=== PATIENT | female | born 1995 | race Hispanic/Latino ===

== ENCOUNTER 2017-06-03 10:52 | Emergency (ER) | payer SELFPAY ==
[~2017-06-03] VITALS: Ht 152.4 cm; Wt 52.2 kg
[2017-06-03 11:23] LABS: BILIRUBIN,URINE NEGATIVE (NEGATIVE); CLARITY,URINE CLEAR (CLEAR); COLOR,URINE YELLOW (YELLOW); KETONES,URINE NEGATIVE (NEGATIVE); LEUKOCYTE ESTERASE ,URINE NEGATIVE (NEGATIVE); NITRITE,URINE NEGATIVE (NEGATIVE); PROTEIN,URINE DIPSTICK NEGATIVE (NEGATIVE); URINE UROBILINOGEN 0.2 mg/dL (0.2 - 1)
[2017-06-03 11:26] LABS: PREGNANCY TEST, URINE NEGATIVE (NEGATIVE)
[2017-06-03 11:38] LABS: BACTERIA,URINE FEW /HPF; EPITHELIAL CELLS,URINE FEW /LPF
[2017-06-03] MEDS ORDERED: MORPHINE SULFATE 2 MG/ML SYR IV STA (12:27)
[2017-06-03] MEDS ORDERED: ONDANSETRON HCL INJ 2 MG/ML VIAL IV STA (12:27)
--- NOTE | 2017-06-03 12:33 | Diagnostic Imaging Report ---
PROCEDURE: CT ABDOMEN AND PELVIS WITHOUT CONTRAST TECHNIQUE: The abdomen and pelvis were scanned utilizing a multidetector helical scanner from the diaphragm to the lesser trochanter without administration of contrast medium. No IV contrast was administered because o/per protocol/per physician request). Coronal and sagittal multiplanar reformations were obtained. DLP: COMPARISON: None. INDICATIONS: HEMATURIA, and abdominal pain. FINDINGS: ABSENCE OF INTRAVENOUS CONTRAST DECREASES SENSITIVITY FOR DETECTION OF FOCAL LESIONS AND VASCULAR PATHOLOGY. LOWER THORAX: Normal. HEPATOBILIARY: No focal hepatic lesions. No biliary ductal dilatation. The gallbladder is unremarkable. SPLEEN: No splenomegaly. PANCREAS: No focal masses or ductal dilatation. ADRENALS: No adrenal nodules. KIDNEYS/URETERS: No hydronephrosis. Punctate hyperdensity in the lower pole of the left kidney on sagittal 89 consistent with a nonobstructing calculus. There is hyperdensity of the renal papilla bilaterally which may be in part related to dehydration versus Anurag plaques which are believed to be precursors renal calculus. PELVIC ORGANS/BLADDER: Multiple tiny phleboliths within the pelvis. PERITONEUM / RETROPERITONEUM: No free air or fluid. LYMPH NODES: No lymphadenopathy. VESSELS: Unremarkable. GI TRACT: No distention or wall thickening. Fluid attenuation within the rectosigmoid is nonspecific however, may explain the patient's diarrhea. The appendix is mildly thickened at 0.8 cm, however, without evidence of surrounding inflammatory changes. BONES AND SOFT TISSUES: Unremarkable. IMPRESSION: 1. Punctate nonobstructing calculus in the lower pole of the left kidney. No hydronephrosis/obstructive uropathy. 2. Hyperdensity of the renal papilla bilaterally which may be in part related to dehydration versus Anurag plaques which are believed to be precursors renal calculus. Marvin Harmon M.D. Dictated by: Marvin Harmon M.D. on 06/03/2017 at 12:34 Electronically approved by: Marvin Harmon M.D. on 06/03/2017 at 12:34
[2017-06-03 12:35] LABS: BASOPHILS % 0.1 % (0.0-1.0); EOSINOPHILS # (AUTO) 0.2 (0.0-0.4); HEMOGLOBIN 13.1 g/dL (12.0-16.0); LYMPHOCYTES # (AUTO) 1.7 (1.0-3.2); LYMPHOCYTES % 20.2 % (18.0-39.1); MEAN CORPUSCULAR HEMOGLOBIN 29.3 pg (28-32); MEAN CORPUSCULAR HGB CONC 33.6 g/dL (31-35); MEAN CORPUSCULAR VOLUME 87.2 fL (81-99); MONOCYTES # (AUTO) 0.4 (0.2-0.8); MONOCYTES % 5.2 % (4.4-11.3); NEUTROPHILS # (AUTO) 6.1 (2.1-6.9); NEUTROPHILS % 72.3 % (38.7-80.0); PLATELET COUNT 216 x10e3/uL (140-360); RED BLOOD COUNT 4.47 x10e6/uL (3.6-5.1); RED CELL DISTRIBUTION WIDTH 12.7 % (11.7-14.4)
[2017-06-03 12:51] LABS: ANION GAP 15.7 mmol/L (8-16); BLOOD UREA NITROGEN 18 mg/dL (7-26); BUN/CREATININE RATIO 26 (6-25); CARBON DIOXIDE 19 mmol/L (22-29); CHLORIDE 106 mmol/L (98-107); CREATININE, SERUM 0.68 mg/dL (0.57-1.11); EST GLOMERULAR FILTRATION RATE > 60 ML/MIN (60-); GLUCOSE 83 mg/dL (74-118); POTASSIUM 3.7 mmol/L (3.5-5.1); SODIUM 137 mmol/L (136-145)
[2017-06-03 13:14] VITALS: BP 111/78
== END 2017-06-03 13:22 | disposition home or self-care (01) ==
LOC: ER 10:52
DX: R30.0 Dysuria (principal); R31.9 Hematuria, unspecified
CPT/HCPCS: 36415; 74176; 80048; 81001; 81025; 85025; 99284; J2270; J2405

== ENCOUNTER 2017-09-18 09:42 | Emergency (ER) | payer SELFPAY ==
[~2017-09-18] VITALS: Ht 154.9 cm; Wt 61.2 kg
[2017-09-18] MEDS ORDERED: ONDANSETRON HCL INJ 2 MG/ML VIAL IV STA (10:08)
[2017-09-18] MEDS ORDERED: SODIUM CHLORIDE 0.9% 1000ML 1,000 ML IV SCH (10:15)
[2017-09-18] MEDS ORDERED: DIATRIZOATE MEGL/DIATRIZOA SOD 30 ML BTL PO ONE (10:19)
[2017-09-18 10:23] LABS: BASOPHILS % 0.4 % (0.0-1.0); EOSINOPHILS % 0.4 % (0.0-6.0); HEMATOCRIT 38.9 % (34.2-44.1); HEMOGLOBIN 13.5 g/dL (12.0-16.0); LYMPHOCYTES % 36.3 % (18.0-39.1); MEAN CORPUSCULAR HEMOGLOBIN 29.7 pg (28-32); MEAN CORPUSCULAR HGB CONC 34.7 g/dL (31-35); MEAN CORPUSCULAR VOLUME 85.7 fL (81-99); MONOCYTES # (AUTO) 0.3 (0.2-0.8); MONOCYTES % 4.8 % (4.4-11.3); NEUTROPHILS # (AUTO) 3.2 (2.1-6.9); NEUTROPHILS % 57.7 % (38.7-80.0); PLATELET COUNT 247 x10e3/uL (140-360); RED BLOOD COUNT 4.54 x10e6/uL (3.6-5.1); RED CELL DISTRIBUTION WIDTH 12.6 % (11.7-14.4)
[2017-09-18 10:30] LABS: CLARITY,URINE SL CLOUDY (CLEAR); COLOR,URINE YELLOW (YELLOW); KETONES,URINE NEGATIVE (NEGATIVE); LEUKOCYTE ESTERASE ,URINE NEGATIVE (NEGATIVE); NITRITE,URINE NEGATIVE (NEGATIVE); PROTEIN,URINE DIPSTICK NEGATIVE (NEGATIVE)
[2017-09-18 10:31] LABS: BILIRUBIN,URINE NEGATIVE (NEGATIVE); URINE UROBILINOGEN 0.2 mg/dL (0.2 - 1)
[2017-09-18 10:34] LABS: ALANINE AMINOTRANSFERASE 18 IU/L (0-55); ALBUMIN 4.4 g/dL (3.5-5.0); ALBUMIN/GLOBULIN RATIO 1.3 (0.8-2.0); ALKALINE PHOSPHATASE 49 IU/L (40-150); ANION GAP 14.8 mmol/L (8-16); BLOOD UREA NITROGEN 13 mg/dL (7-26); BUN/CREATININE RATIO 17 (6-25); CALCIUM 9.4 mg/dL (8.4-10.2); CARBON DIOXIDE 22 mmol/L (22-29); CHLORIDE 107 mmol/L (98-107); CREATININE, SERUM 0.76 mg/dL (0.57-1.11); EST GLOMERULAR FILTRATION RATE > 60 ML/MIN (60-); GLUCOSE 103 mg/dL (74-118); POTASSIUM 3.8 mmol/L (3.5-5.1); SODIUM 140 mmol/L (136-145)
[2017-09-18 10:42] LABS: AMORPHOUS SEDIMENT,URINE FEW (FEW); BACTERIA,URINE RARE /HPF; EPITHELIAL CELLS,URINE RARE /LPF; WBC,URINE (MAN) 0-5 /HPF (0-5)
[2017-09-18 10:43] LABS: YEAST,URINE FEW
[2017-09-18 10:44] LABS: RBC,URINE 0-5 /HPF (0-5)
[2017-09-18 10:45] LABS: AMYLASE 61 U/L (25-125); LIPASE 15 U/L (8-78)
--- NOTE | 2017-09-18 13:34 | Diagnostic Imaging Report ---
PROCEDURE: CT ABDOMEN AND PELVIS WITH CONTRAST TECHNIQUE: The abdomen and pelvis were scanned utilizing a multidetector helical scanner from the diaphragm to the lesser trochanter after the IV administration of 100 cc of Isovue 370 and the oral administration of Gastrografin with water. Coronal and sagittal multiplanar reformations were obtained. DLP: 253.86 mGy-cm COMPARISON: [facility], CT, CT ABDOMEN/PELVIS , 06/03/2017, 11:59. INDICATIONS: UPPER ABDOMINAL PAIN, RIGHT LOWER QUADRANT REBOUND TENDERNESS FINDINGS: LOWER THORAX: Normal. HEPATOBILIARY: No focal hepatic lesions. No biliary ductal dilatation. SPLEEN: No splenomegaly. PANCREAS: No focal masses or ductal dilatation. ADRENALS: No adrenal nodules. KIDNEYS/URETERS: No hydronephrosis, stones or solid mass lesions. PELVIC ORGANS/BLADDER: Unremarkable. PERITONEUM / RETROPERITONEUM: No free air or fluid. LYMPH NODES: No lymphadenopathy. VESSELS: Unremarkable. GI TRACT: No distention or wall thickening. The appendix is retrocecal and is prominent measuring 5.7-8.3 mm. There is however no evidence of periappendiceal fat stranding or inflammation and the likelihood of appendicitis is felt to be low. Previous exam also showed a prominent appendix without evidence of inflammation. BONES AND SOFT TISSUES: Unremarkable. IMPRESSION: Prominent appendix again noted without evidence of inflammation renders the likelihood of acute appendicitis low. Manolo Hill D.O. Dictated by: Manolo Hill D.O. on 09/18/2017 at 13:38 Electronically approved by: Manolo Hill D.O. on 09/18/2017 at 13:38
[2017-09-18 14:00] VITALS: BP 120/66
[2017-09-18] MEDS ORDERED: SODIUM CHLORIDE 0.9% 50ML 50 ML ONE (14:31)
[2017-09-18] MEDS ORDERED: IOPAMIDOL 370 MG/ML 200 ML INFUS..BTL INJ ONE (14:33)
== END 2017-09-18 13:57 | disposition home or self-care (01) ==
LOC: ER 09:42
DX: R10.84 Generalized abdominal pain (principal); R11.2 Nausea with vomiting, unspecified; R19.7 Diarrhea, unspecified; K52.9 Noninfective gastroenteritis and colitis, unspecified
CPT/HCPCS: 36415; 74177; 80053; 81001; 82150; 83690; 84702; 85025; 99284; J2405; J7030; Q9967